=== PATIENT | female | born 1970 | race American Indian/Alaskan Native ===

== ENCOUNTER 2018-02-23 20:56 | Emergency (ER) | payer OTHER ==
--- NOTE | 2018-02-23 21:59 | XRay Report ---
FINAL REPORT EXAM: XR CHEST ROUTINE 2V HISTORY: persistant cough TECHNIQUE: Two view chest PA and lateral PRIORS: None. FINDINGS: Cardiac and mediastinal contours are unremarkable. No focal pulmonary infiltrate is identified. No pleural fluid collection seen. Pulmonary vasculature is unremarkable. IMPRESSION: Negative two-view chest
[2018-02-23 22:04] LABS: Hematocrit 37.7 % (30.3-42.9); Hemoglobin 12.7 gm/dl (10.1-14.3); Mean Corpuscular HGB Conc 34 % (30-34); Mean Corpuscular Hemoglobin 29 pg (28-32); Mean Corpuscular Volume 87 fl (79-97); Platelet Count 302 K/mm3 (140-440); Red Blood Count 4.36 M/mm3 (3.65-5.03); Red Cell Distribution Width 13.7 % (13.2-15.2)
[2018-02-23 22:09] LABS: BUN/Creatinine Ratio 14; Blood Urea Nitrogen 10 mg/dL (7-17); Calcium 9.7 mg/dL (8.4-10.2); Hemolysis Index 15
[2018-02-24 01:17] VITALS: BP 149/82
[2018-02-24] MEDS ORDERED: ZITHROMAX PO ONE (01:40)
--- NOTE | 2018-02-24 01:46 | Emergency Department Report ---
- General Chief Complaint: Upper Respiratory Infection Stated Complaint: COUGH Time Seen by Provider: 02/24/18 01:39 Source: patient Mode of arrival: Ambulatory Limitations: No Limitations - History of Present Illness Initial Comments: 47-year-old woman presents with 3-4 day history of cough and congestion, with mild soreness of throat. She went to her primary care physician's office 3 days ago, was evaluated and placed on promethazine cough syrup, which has not helped at all. She is not had any feverishness, cough is persistent, minimally productive of whitish sputum, but no shortness of breath, no wheezing. She has no headache, no nasal congestion, and no earache him up and no other upper respiratory symptoms besides mild soreness of throat. Past medical history significant for right sided lung cancer 4 years ago, treated successfully, and she is not receiving any treatment for this at that time, been healthy is otherwise good. MD Complaint: cough, sore throat Onset/Timin -: Gradual, days(s) Severity: moderate Severity scale (0 -10): 4 Quality: aching Consistency: intermittent Improves With: OTC cold medicine Worsens With: nothing Associated Symptoms: denies other symptoms Treatments Prior to Arrival: other (promethazine) - Related Data Home Medications Medication Instructions Recorded Confirmed Last Taken Hydrochlorothiazide [Hctz] 12.5 mg PO QDAY 02/05/16 04/24/16 1 Day Ago ~02/04/16 12.5 amLODIPine [Norvasc] 10 mg PO DAILY 02/05/16 04/24/16 1 Day Ago ~02/04/16 10 Ferrous Sulfate [Feosol] 325 mg PO QDAY 04/24/16 04/24/16 Unknown Previous Rx's Medication Instructions Recorded Last Taken Type HYDROcodone/APAP 5-325 [Clarkson 1 each PO Q6HR PRN #12 tablet 02/05/16 Unknown Rx 5/325] Ondansetron [Zofran Odt] 4 mg PO Q8HR #15 tab.rapdis 02/05/16 Unknown Rx Nystatin/Triamcin [Mycolog Cream] 1 applicatio TP BID #1 tube 04/24/16 Unknown Rx Azithromycin [Zithromax TAB] 500 mg PO QDAY #2 tablet 02/24/18 Unknown Rx Fluconazole [Diflucan TAB] 200 mg PO QDAY #1 tablet 02/24/18 Unknown Rx Hydrocodone Bit/Homatrop Me-Br 5 ml PO Q4-6H PRN #120 ml 02/24/18 Unknown Rx [Hydrocodone-Homatropine Soln] Allergies Allergy/AdvReac Type Severity Reaction Status Date / Time No Known Allergies Allergy Verified 03/23/15 12:24 ED Review of Systems ROS: Stated complaint: COUGH Other details as noted in HPI Comment: All other systems reviewed and negative Constitutional: denies: chills, diaphoresis, fever, malaise Eyes: denies: eye pain, eye discharge, vision change ENT: throat pain ([id number]) Respiratory: cough. denies: shortness of breath Cardiovascular: denies: chest pain, palpitations, dyspnea on exertion Endocrine: no symptoms reported Gastrointestinal: denies: abdominal pain, nausea, diarrhea Genitourinary: denies: urgency, dysuria, discharge Musculoskeletal: denies: back pain, joint swelling, arthralgia Skin: denies: rash, lesions Neurological: denies: headache, weakness, paresthesias ED Past Medical Hx - Past Medical History Hx Hypertension: Yes - Surgical History Additional Surgical History: spot removed from her right lung 01/2014 RLL partial removal/chemo. port removed - Social History Smoking Status: Never Smoker Substance Use Type: None - Medications Home Medications: Home Medications Medication Instructions Recorded Confirmed Last Taken Type HYDROcodone/APAP 5-325 [Clarkson 1 each PO Q6HR PRN #12 tablet 02/05/16 04/24/16 Unknown Rx 5/325] Hydrochlorothiazide [Hctz] 12.5 mg PO QDAY 02/05/16 04/24/16 1 Day Ago History ~02/04/16 12.5 Ondansetron [Zofran Odt] 4 mg PO Q8HR #15 tab.rapdis 02/05/16 04/24/16 Unknown Rx amLODIPine [Norvasc] 10 mg PO DAILY 02/05/16 04/24/16 1 Day Ago History ~02/04/16 10 Ferrous Sulfate [Feosol] 325 mg PO QDAY 04/24/16 04/24/16 Unknown History Nystatin/Triamcin [Mycolog Cream] 1 applicatio TP BID #1 tube 04/24/16 Unknown Rx Azithromycin [Zithromax TAB] 500 mg PO QDAY #2 tablet 02/24/18 Unknown Rx Fluconazole [Diflucan TAB] 200 mg PO QDAY #1 tablet 02/24/18 Unknown Rx Hydrocodone Bit/Homatrop Me-Br 5 ml PO Q4-6H PRN #120 ml 02/24/18 Unknown Rx [Hydrocodone-Homatropine Soln] ED Physical Exam - General Limitations: No Limitations General appearance: alert, in no apparent distress - Head Head exam: Present: atraumatic, normocephalic - Eye Eye exam: Present: PERRL, EOMI. Absent: scleral icterus, conjunctival injection - ENT ENT exam: Present: normal exam, normal orophraynx - Neck Neck exam: Present: normal inspection. Absent: tenderness, full ROM - Respiratory Respiratory exam: Present: normal lung sounds bilaterally. Absent: respiratory distress, wheezes, rales - Cardiovascular Cardiovascular Exam: Present: regular rate - GI/Abdominal GI/Abdominal exam: Present: soft, normal bowel sounds. Absent: tenderness, guarding, rebound - Extremities Exam Extremities exam: Present: normal inspection, full ROM - Neurological Exam Neurological exam: Present: alert, oriented X3, CN II-XII intact. Absent: motor sensory deficit - Psychiatric Psychiatric exam: Present: normal affect, normal mood ED Course Vital Signs 02/23/18 02/23/18 02/24/18 20:54 21:11 01:12 Temperature 36.9 C 36.9 C 36.7 C Pulse Rate 62 62 73 Respiratory 18 18 18 Rate Blood Pressure 167/83 167/83 Blood Pressure 149/82 [Left] O2 Sat by Pulse 99 100 100 Oximetry ED Medical Decision Making - Lab Data Result diagrams: 02/23/18 21:35 02/23/18 21:35 - Radiology Data Radiology results: report reviewed (chest x-ray is normal with no acute cardiopulmonary process visible) - Medical Decision Making Patient has findings of lower respiratory symptoms, with cough and congestion persisting for greater than 5 days, with past history of lung cancer. Although patient is clinically stable, shows no fever, has stable labs and normal chest x -ray, I believe she would benefit from coverage with broad-spectrum antibiotics , and initial dose of azithromycin provided emergency department. - Differential Diagnosis pharyngitis, upper respiratory infection, pneumonia, bronchitis Critical Care Time: No Critical care attestation.: If time is entered above; I have spent that time in minutes in the direct care of this critically ill patient, excluding procedure time. ED Disposition Clinical Impression: History of lung cancer in adulthood Acute bronchitis Qualifiers: Bronchitis organism: unspecified organism Qualified Code(s): J20.9 - Acute bronchitis, unspecified Is pt being admited?: No Does the pt Need Aspirin: No Condition: Stable Instructions: Acute Bronchitis (ED) Prescriptions: Azithromycin [Zithromax TAB] 500 mg PO QDAY #2 tablet Fluconazole [Diflucan TAB] 200 mg PO QDAY #1 tablet Hydrocodone Bit/Homatrop Me-Br [Hydrocodone-Homatropine Soln] 5 ml PO Q4-6H PRN #120 ml PRN Reason: Cough Referrals: LORI LEE MD [Primary Care Provider] - 3-5 Days Forms: Work/School Release Form(ED) Time of Disposition: 01:49
== END 2018-02-24 02:05 | disposition home or self-care (01) ==
LOC: ED 20:56
DX: J20.9 Acute bronchitis, unspecified (principal); I10 Essential (primary) hypertension; Z85.118 Personal history of other malignant neoplasm of bronchus and lung
CPT/HCPCS: 36415; 71046; 80048; 85027; 99283

== ENCOUNTER 2020-07-01 06:25 | Day surgery (SDC) | payer OTHER ==
[2020-07-01] MEDS ORDERED: SODIUM CHLORIDE 0.9% 1000 ML 1,000 ML IV SCH (06:30)
--- NOTE | 2020-07-01 07:39 | Anesthesia Day of Surgery ---
Anesthesia Day of Surgery - Day of Surgery Patient Examined: Yes Patient H&P Reviewed: Yes Patient is NPO: Yes
--- NOTE | 2020-07-01 07:39 | Anesthesia Consultation ---
Anesthesia Consult and Med Hx Date of service: 07/01/20 - Airway Anesthetic Teeth Evaluation: Good ROM Head & Neck: Adequate Mental/Hyoid Distance: Adequate Mallampati Class: Class II Intubation Access Assessment: Probably Good - Pulmonary Exam CTA: Yes - Cardiac Exam Cardiac Exam: RRR - Pre-Operative Health Status ASA Pre-Surgery Classification: ASA3 Proposed Anesthetic Plan: MAC - Pulmonary Hx Asthma: Yes (daily symbicort and albuterol) - Cardiovascular System Hx Hypertension: Yes Hx Heart Attack/AMI: No - Central Nervous System CVA: No Hx Psychiatric Problems: Yes (depression) - Gastrointestinal Hx Gastroesophageal Reflux Disease: No - Endocrine Hx Renal Disease: No Hx Liver Disease: No Hx Insulin Dependent Diabetes: No Hx Non-Insulin Dependent Diabetes: No Hx Thyroid Disease: No - Other Systems Hx Cancer: Yes (hx lung ca) Hx Obesity: Yes (BMI 36)
[2020-07-01] MEDS ORDERED: propofoL 200 MG/20 ML VIAL IV ONE (08:58)
[2020-07-01] MEDS ORDERED: LIDOCAINE MPF (2%) 20 MG/1 ML VIAL 5 ML ONE (09:45)
--- NOTE | 2020-07-01 09:48 | Procedure Note ---
Date of procedure: 07/01/20 Pre-op diagnosis: H/O Colon Polyps Post-op diagnosis: other (No Colon Polyps/ Minor,Left Colon Diverticuli/Minor,Internal Hemorrhoid) Procedure: Colonoscopy Anesthesia: MAC Surgeon: BERNIE REESE Estimated blood loss: none Pathology: none Condition: stable Disposition: same day (Encourage fiber ibntake. Resume home medication and follow up in 1 to 2 weeks ([phone]).)
--- NOTE | 2020-07-01 10:01 | Operative Report ---
PROCEDURE: Colonoscopy. LEGAL EDITOR: Procedure was done in the GI lab with assistance of the GI lab team, which included RN, Gena Gooden; Jennifer trevino and with assistance of anesthesia. INDICATIONS: This is a 49-year-old -[place] female with a history of asthma, prior history of lung cancer for which she has had surgery and chemotherapy. She had a colonoscopy done a little over 2 years ago. At that time, she did have a colon polyp, which was of the tubular adenoma type. Repeat colonoscopy is done to make sure that there has not been any recurrence of any polyps, especially with an underlying history of cancer. DESCRIPTION OF PROCEDURE: Procedure was done after getting informed consent with MAC anesthesia. Initial rectal exam was unremarkable. Instrument was passed through the rectum onto the cecum, which was identified with ileocecal valve and appendiceal orifice. Visualization was fair to good. Cecum, ascending colon, transverse colon showed normal mucosa. There were a few minor diverticula noted in the left colon and the rectum showed some minor internal hemorrhoid on the retroverted view. There were no biopsies done. There was no bleeding associated with the procedure. No colon polyps noted during this exam. ASSESSMENT: History of colon polyps, none now; history of lung cancer for which she has been treated with surgery and chemotherapy; a few minor diverticula, minor internal hemorrhoid. PLAN: To encourage the patient to take fiber supplements. Resume home medication. Follow up in the office in 1-2 weeks' time. JOB# [id number] MALCOLM/PRATEEK
[2020-07-01 10:43] VITALS: BP 129/79
--- NOTE | 2020-07-01 12:05 | Post Anesthesia Evaluation ---
- Post Anesthesia Evaluation Patient Participated: Yes Airway Patent: Yes Stable Respiratory Function: Yes Nausea/Vomiting: No Temp > 96.8F: Yes Pain Manageable: Yes Adequeate Hydration: Yes Anesthesia Complications: No
== END 2020-07-01 06:26 | disposition home or self-care (01) ==
LOC: GIO 06:25
DX: Z12.11 Encounter for screening for malignant neoplasm of colon (principal); K57.30 Diverticulosis of large intestine without perforation or abscess without bleeding; K64.8 Other hemorrhoids; I10 Essential (primary) hypertension; E78.00 Pure hypercholesterolemia, unspecified; J45.909 Unspecified asthma, uncomplicated; E66.9 Obesity, unspecified; F32.9 Major depressive disorder, single episode, unspecified; Z98.890 Other specified postprocedural states; Z86.010 Personal history of colon polyps; Z85.118 Personal history of other malignant neoplasm of bronchus and lung; Z79.899 Other long term (current) drug therapy; Z68.36 Body mass index [BMI] 36.0-36.9, adult
CPT/HCPCS: 45378; J2704; J7030

== ENCOUNTER 2021-01-30 10:36 | Outpatient (CLI) | payer OTHER ==
--- NOTE | 2021-02-02 10:41 | Mammography Report ---
DIGITAL SCREENING MAMMOGRAM WITH TOMOSYNTHESIS WITH CAD, 02/01/2021 CLINICAL INFORMATION / INDICATION: Screening TECHNIQUE: Digital bilateral 2D and 3D mammography with tomosynthesis was obtained in the craniocaud al and mediolateral oblique projections. Computer-Aided Detection (CAD) analysis was used for interp retation of this study. COMPARISON: 10/23/2016 FINDINGS: Breast Density: The breasts are heterogeneously dense, which may obscure small masses. No dominant mass, suspicious calcifications, or architectural distortion in either breast. Mild nodularity is stable. IMPRESSION: No mammographic evidence of malignancy. Follow up recommendation: Routine yearly BI-RADS Category 2: Benign. A "normal" or negative report should not discourage follow up or biopsy of a clinically significant f inding. A written summary of these findings will be mailed to the patient. The patient will be entered into a mammography reporting system which will generate a reminder letter for the patient's next appointmen t at the appropriate interval. The [employer] recommends yearly mammograms starting at age 40 and continuing as l sujit as a woman is in good health. Breast MRI is recommended for women with an approximate 20-25% or greater lifetime risk of breast cancer, including women with a strong family history of breast or ova rajendra cancer or who have been treated for Hodgkin's disease. Signer Name: Virgil Cook MD Signed: 02/02/2021 10:36 AM Workstation Name: [employer]
== END 2021-01-30 10:37 | disposition home or self-care (01) ==
LOC: SPVWC 10:36
PROVIDERS: ATTEND Surgery
DX: Z12.31 Encounter for screening mammogram for malignant neoplasm of breast (principal)
CPT/HCPCS: 77063; 77067

== ENCOUNTER 2022-05-10 09:22 | Outpatient (CLI) | payer OTHER ==
--- NOTE | 2022-05-10 14:49 | Mammography Report ---
DIGITAL SCREENING MAMMOGRAM WITH CAD, 05/10/2022 CLINICAL INFORMATION / INDICATION: Routine screening mammography. TECHNIQUE: Digital bilateral 2D mammography was obtained in the craniocaudal and mediolateral obliqu e projections. This examination was interpreted with the benefit of Computer-Aided Detection analysis . COMPARISON: 01/30/2021, 10/23/2016 FINDINGS: Breast Density: There are scattered areas of fibroglandular density. No dominant mass, suspicious calcifications, or architectural distortion in either breast. Stable sma ll benign nodule, right breast. Other than involution of the breast tissue bilaterally, there has been no significant interval change . IMPRESSION: No mammographic evidence of malignancy. Follow up recommendation: Routine yearly screening mammogram. BI-RADS Category 2: BENIGN. A "normal" or negative report should not discourage follow up or biopsy of a clinically significant f inding. A written summary of these findings will be mailed to the patient. The patient will be entered into a mammography reporting system which will generate a reminder letter for the patient's next appointmen t at the appropriate interval. The [employer] recommends yearly mammograms starting at age 40 and continuing as l sujit as a woman is in good health. Breast MRI is recommended for women with an approximate 20-25% or greater lifetime risk of breast cancer, including women with a strong family history of breast or ova rajendra cancer or who have been treated for Hodgkin's disease. Signer Name: Chyna Diallo MD Signed: 05/10/2022 2:45 PM Workstation Name: [email or web address]
== END 2022-05-10 09:23 | disposition home or self-care (01) ==
LOC: SPVWC 09:22
PROVIDERS: ATTEND Surgery
DX: Z12.31 Encounter for screening mammogram for malignant neoplasm of breast (principal)
CPT/HCPCS: 77067